=== PATIENT | male | born 1960 | race Caucasian/White ===

== ENCOUNTER 2018-02-02 14:35 | Emergency (ER) | payer BC, OTHER ==
--- NOTE | 2018-02-02 14:41 | PDOC ---
Rapid Medical Evaluation Time Seen by Provider: 02/02/18 14:38 Medical Evaluation: Allergies Allergy/AdvReac Type Severity Reaction Status Date / Time No Known Drug Allergies Allergy Unverified 02/02/18 14:38 02/02/18 14:38 57 year old male with history of NIDDM and HTN off meds who presented to PCP after 2 year absence and complained of 2 days of dizziness and blurred vision, worse at night. No headaches or chest pain. V/s on arrival unremarkable. Alert, oriented, no distress. RRR, S1/S2. Lungs CTAB. Abd soft, non-tender, non-distended. + Lateral nystagmus. Referring PCP is Dr. Vu. Plan: -EKG -Basic labs including CBC, CMP, UA, fingerstick -To Main ED for further evaluation
[2018-02-02 14:42] VITALS: BP 140/89; PULSE 88; TEMP 98.8; BMI 20.9
[2018-02-02 15:13] LABS: BASO % 0.6 % (0-2.0); EOS % 0.9 % (0-4.5); HEMATOCRIT 40.1 % (35.4-49); HEMOGLOBIN 14.1 GM/dL (11.7-16.9); LYMPH % 11.6 % (8-40); MCH 31.8 pg (25.7-33.7); MCHC 35.2 g/dl (32.0-35.9); MEAN CELL VOLUME 90.4 fl (80-96); MEAN PLT VOLUME 7.7 fl (7.5-11.1); MONO % 6.1 % (3.8-10.2); NEUT % 80.8 % (42.8-82.8); PLATELET COUNT 273 K/MM3 (134-434); RBC 4.44 M/mm3 (4.00-5.60); RDW 13.1 % (11.9-15.9); WHITE BLOOD COUNT 5.8 K/mm3 (4.0-10.0)
[2018-02-02 15:25] LABS: ALBUMIN 4.2 g/dl (3.4-5.0); CHLORIDE 102 mmol/L (98-107); SODIUM 137 mmol/L (136-145)
[2018-02-02 15:29] LABS: ALK PHOS 67 U/L (45-117); ANION GAP 7 MMOL/L (8-16); BILIRUBIN,TOTAL 0.5 mg/dL (0.2-1.0); BLOOD UREA NITROGEN 19 mg/dL (7-18); CO2 28 mmol/L (21-32); CREATININE 1.1 mg/dL (0.7-1.3); GLUCOSE,RANDOM 225 mg/dL (74-106); SGOT/AST 15 U/L (15-37); SGPT/ALT 18 U/L (12-78); TOT PROT 7.3 g/dl (6.4-8.2)
--- NOTE | 2018-02-02 15:35 | PDOC ---
History of Present Illness - General Chief Complaint: Lightheaded Stated Complaint: HAVING DIZZINESS BLUERRED VISSION ESPECISLY AT NIG Time Seen by Provider: 02/02/18 14:38 History Source: Patient Exam Limitations: No Limitations - History of Present Illness Initial Comments: 02/02/18 15:56 57 year old male with PMH diabetes sent to ED by Dr. Vu for dizzines x2 days. He states his dizziness is intermittent, agravated by laying flat, alleviated by sitting upright or standing. He denies headache, fever, chills, numbness, tingling, weakness, chest pain, shortness of breath, abdominal pain, current nausea, vomiting. PCP - Dr. Vu Allergies - NKDA Admits to social etoh use. Denies nicotine use. Denies illicit drug use. Past History - Past Medical History Allergies/Adverse Reactions: Allergies Allergy/AdvReac Type Severity Reaction Status Date / Time No Known Drug Allergies Allergy Unverified 02/02/18 14:38 Home Medications: Ambulatory Orders Aspirin [Amaury Chewable] 81 mg PO AC 02/02/18 Anemia: No Asthma: No Cancer: No Cardiac Disorders: No CVA: No COPD: No CHF: No DVT: No Dementia: No Diabetes: Yes (NIDDM) GI Disorders: No Disorders: No HTN: Yes Hypercholesterolemia: No Liver Disease: No Seizures: No Thyroid Disease: No - Surgical History Abdominal Surgery: No Appendectomy: No Cardiac Surgery: No Cholecystectomy: No Lung Surgery: No Neurologic Surgery: No Orthopedic Surgery: No - Suicide/Smoking/Psychosocial Hx Smoking History: Former smoker Have you smoked in the past 12 months: No Information on smoking cessation initiated: No Hx Alcohol Use: Yes (SOCIAL) Drug/Substance Use Hx: No Hx Substance Use Treatment: No Review of Systems - Review of Systems Able to Perform ROS?: Yes Comments:: 02/02/18 15:58 General: denies fever, chills, night sweats, generalized weakness. HEENT: denies sore throat, rhinorrhea, ear pain. Heart: denies chest pain, palpitations, syncope, lower extremity swelling, diaphoresis. Respiratory: denies shortness of breath, cough, sputum production, hematemesis. Abdomen: denies abdominal pain, nausea, vomiting, diarrhea, constipation, blood in stool. : denies dysuria, increased urinary frequency, hematuria, urinary incontinence , flank pain. Back: denies back pain, flank pain. Musculoskeletal: denies joint pain, muscle pain, joint swelling. Neurological: admits to dizziness. denies headache, numbness, tingling, weakness. Skin: denies rash, laceration, abrasion. *Physical Exam - Vital Signs Last Vital Signs Temp Pulse Resp BP Pulse Ox 98.8 F 88 18 140/89 100 02/02/18 14:40 02/02/18 14:40 02/02/18 14:40 02/02/18 14:40 02/02/18 14:40 - Physical Exam Comments: 02/02/18 15:58 Appearance: comfortable. HEENT: head is normocephalic, atraumatic. EOMI. PERRLA. Left-beating nystagmus with left-smart gaze. Neck: supple. Full ROM. Heart: regular rhythm. no murmurs, rubs or gallops. No pericardial friction rub. Lungs: clear to auscultation bilaterally. no crackles, rhonchi or wheezing. no stridor. Abdomen: soft, nontender. normal bowel sounds. no rebound, guarding, masses. Extremities: Peripheral pulses intact. No lower extremity edema. Neurological: Alert. Oriented x3. CN2-12 intact. 5/5 strength all extremities. Full sensation all extremities and bilateral face. Romberg negative. Finger to nose normal. Gait normal. Josie-Hallpike - No symptoms when standing. No symptoms when sitting straight up. No symptoms upon rotation of head to the left. Reproduction of symptoms and lateral nystagmus noted upon rotation of head to the right. Heart Score/ECG Review - ECG Impressions Comment:: 02/02/18 18:15 Rate 78, regular rhythm, normal axis, no ST changes. ED Treatment Course - LABORATORY CBC & Chemistry Diagram: 02/02/18 14:52 02/02/18 14:52 - ADDITIONAL ORDERS Additional order review: Laboratory Results 02/02/18 14:52 Sodium 137 Potassium 4.0 Chloride 102 Carbon Dioxide 28 Anion Gap 7 L BUN 19 H Creatinine 1.1 Creat Clearance w eGFR > 60 Random Glucose 225 H Calcium 9.0 Total Bilirubin 0.5 AST 15 ALT 18 Alkaline Phosphatase 67 Total Protein 7.3 Albumin 4.2 02/02/18 14:52 RBC 4.44 MCV 90.4 MCHC 35.2 RDW 13.1 MPV 7.7 Neutrophils % 80.8 Lymphocytes % 11.6 Monocytes % 6.1 Eosinophils % 0.9 Basophils % 0.6 Medical Decision Making - Medical Decision Making 02/02/18 15:55 57 year old male with PMH diabetes presents to ED c/o dizziness for two days associated with laying down, alleviated by sitting up right or standing. Initial Vital Signs Temp Pulse Resp BP Pulse Ox 98.8 F 88 18 140/89 100 02/02/18 14:40 02/02/18 14:40 02/02/18 14:40 02/02/18 14:40 02/02/18 14:40 Afebrile. No tachycardia. No hypotension. No hypoxia. Meclizine and Zofran ordered. 02/02/18 17:17 Pt reassessed, states no dizziness while sitting up, continued dizziness while laid down and head rotated to the right, but states that the dizziness is improved. 02/02/18 17:39 Pt reassessed, states his dizziness is continuing to improve. 02/02/18 18:[address] Vu, the pt's PCP, who would like a head CT ordered. She states if it is negative she would like the patient to be discharged with Meclizine prescription and Dr. Banda Neurology Referral. Pending head CT. 02/02/18 19:01 I discussed the patient with Dr. Sánchez, who will take over care for the patient. Pending head CT. *DC/Admit/Observation/Transfer Diagnosis at time of Disposition: Vertigo - Referrals Referrals: Kristina Vu MD [Primary Care Provider] - Graciela Banda MD [Staff Physician] - - Patient Instructions Printed Discharge Instructions: DI for Benign Paroxysmal Positional Vertigo Additional Instructions: You were seen today for dizziness. You were given Meclizine and Zofran. You likely have positional vertigo. Please follow up with your primary care doctor within 5 days. Call them tomorrow and make an appointment for this week. Bring the paperwork given to you today with you to your appointment. I have provided a referral for a neurologist, and provided their contact information in your discharge paperwork. Call them tomorrow and make an appointment for this week. Let them know you were seen in the Emergency Department. Bring the paperwork given to you today with you to your appointment. Please return to the Emergency Department for intractable dizziness, nausea, vomiting, chest pain, shortness of breath, weakness of arms or legs, numbness, tingling, loss of consciousness, seizures or any new, worsening or concerning symptoms. - Post Discharge Activity
[2018-02-02 15:36] LABS: URINE APPEARANCE CLEAR; URINE BILIRUBIN NEGATIVE (<2.0 mg/dL); URINE COLOR YELLOW; URINE GLUCOSE (UA) 3+ (NEGATIVE); URINE KETONE NEGATIVE (NEGATIVE); URINE LEUK ESTERASE NEGATIVE (NEGATIVE); URINE NITRITE NEGATIVE (NEGATIVE); URINE PROTEIN NEGATIVE (NEGATIVE); URINE UROBILINOGEN NEGATIVE mg/dL (0.2-1.0)
[2018-02-02] MEDS ORDERED: MECLIZINE HCL 25 MG TABLET (FP) PO ONE (16:03)
[2018-02-02] MEDS ORDERED: ONDANSETRON *ODT* 4 MG TABLET SL ONE (16:04)
[2018-02-02] MEDS ORDERED: MECLIZINE HCL 25 MG TABLET (FP) ONE (16:13)
--- NOTE | 2018-02-02 16:36 | EKG ---
Test Reason : Blood Pressure : / mmHG Vent. Rate : 078 BPM Atrial Rate : 078 BPM P-R Int : 130 ms QRS Dur : 090 ms QT Int : 378 ms P-R-T Axes : 074 047 036 degrees QTc Int : 430 ms NORMAL SINUS RHYTHM NORMAL ECG NO PREVIOUS ECGS AVAILABLE Confirmed by MAUREEN CHAPMAN MD ([id number]) on 02/02/2018 4:36:46 PM Referred By: Confirmed By:MAUREEN CHAPMAN MD
--- NOTE | 2018-02-02 17:11 | PDOC ---
Attending Attestation - Resident Resident Name: Honey Nagy - ED Attending Attestation I have performed the following: I have examined & evaluated the patient, The case was reviewed & discussed with the resident, I agree w/resident's findings & plan, Exceptions are as noted - HPI HPI: 02/02/18 17:11 57 yo male p/w positional dizziness - Physicial Exam PE: 02/02/18 19:46 head ncat eyes nystagmus in left lateral ,jean carlos eomi neck no bruits,no jvd lungs cta b/l cvs [id number] abd nontender ext no e/c/c neuro axox3,no ataxia,no motor weakness,no visual deficits,dtr+2 - Medical Decision Making 02/02/18 19:45 ct scan head normal ,no acute pathology labs reviewed referred to Dr Koenig ( neuro) 0 and given RX meclizine 02/02/18 19:49 IMP benign positional vertigo <Lila Reeves - Last Filed: 02/02/18 19:49> - HPI HPI: 02/02/18 20:01 Patient is a 57 year old male with a significant past medical history of Diabetes, who presents to ED with complaints of dizziness that began x2 days ago. Patient reports experiencing intermittent dizziness that he states is increased while laying flat and is slightly relieved when his is standing or sitting upright. Patient reports experiencing associated blurred vision, that he states prompted him to see his PCP who advised he come into the ED for further evaluation. Denies chest pain, Sob. Denies nausea, vomiting. Denies contact with sick individuals, out of state travelling. Denies fevers, chills.Denies head trauma. Denies dysuria, hematuria. Denies diarrhea, constipation. Denies any other symptoms. Allergies: None Social history: Former smoker, Social alcohol use. No illicit drugs. Surgical history: None PMD: Dr. Vu <Waldo Santoyo - Last Filed: 02/02/18 20:02>
--- NOTE | 2018-02-02 19:23 | PDOC ---
*Physical Exam - Vital Signs Last Vital Signs Temp Pulse Resp BP Pulse Ox 98.8 F 88 18 140/89 100 02/02/18 14:40 02/02/18 14:40 02/02/18 14:40 02/02/18 14:40 02/02/18 14:40 ED Treatment Course - LABORATORY CBC & Chemistry Diagram: 02/02/18 14:52 02/02/18 14:52 - ADDITIONAL ORDERS Additional order review: Laboratory Results 02/02/18 02/02/18 02/02/18 16:28 14:52 14:30 Sodium 137 Potassium 4.0 Chloride 102 Carbon Dioxide 28 Anion Gap 7 L BUN 19 H Creatinine 1.1 Creat Clearance w eGFR > 60 POC Glucometer [phone] Random Glucose 225 H Calcium 9.0 Total Bilirubin 0.5 AST 15 ALT 18 Alkaline Phosphatase 67 Total Protein 7.3 Albumin 4.2 Urine Color Yellow Urine Appearance Clear Urine pH 6.0 Ur Specific [place] 1.018 Urine Protein Negative Urine Glucose (UA) 3+ H Urine Ketones Negative Urine Blood Negative Urine Nitrite Negative Urine Bilirubin Negative Urine Urobilinogen Negative Ur Leukocyte Esterase Negative 02/02/18 02/02/18 16:28 14:52 RBC 4.44 MCV 90.4 MCHC 35.2 RDW 13.1 MPV 7.7 Neutrophils % 80.8 Lymphocytes % 11.6 Monocytes % 6.1 Eosinophils % 0.9 Basophils % 0.6 POC Glucometer [phone] - Medications Given in the ED: ED Medications Discontinued Medications Generic Name Dose Route Start Last Admin Trade Name Freq PRN Reason Stop Dose Admin Meclizine HCl 50 mg 02/02/18 16:03 02/02/18 16:12 Antivert - PO 02/02/18 16:04 50 mg ONCE ONE Administration Ondansetron HCl 4 mg 02/02/18 16:04 02/02/18 16:12 Zofran Odt - SL 02/02/18 16:05 4 mg ONCE ONE Administration Medical Decision Making - Medical Decision Making Likely BPPV. Received meclizine and zofran. Awaiting head CT results. Imaging requested by Dr. Castillo. Follow up with outpatient neurology. Discussed normal imaging results with pt. Answered all questions. Provided return precautions. Pt expressed verbal understanding and agreement with plan to discharge home with outpatient neurology follow up. Prescription for meclizine sent to pharmacy of record. Cautioned pt to medication's sedating effect. *DC/Admit/Observation/Transfer Diagnosis at time of Disposition: Vertigo - Discharge Dispostion Disposition: HOME Condition at time of disposition: Fair Decision to Admit order: No - Prescriptions Prescriptions: Meclizine HCl [Antivert -] 25 mg PO QID PRN #28 tablet PRN Reason: Vertigo Meclizine HCl [Antivert -] 25 mg PO QID PRN #28 tablet PRN Reason: Vertigo - Referrals Referrals: Kristina Vu MD [Primary Care Provider] - Graciela Banda MD [Staff Physician] - - Patient Instructions Printed Discharge Instructions: DI for Benign Paroxysmal Positional Vertigo Additional Instructions: You were seen today for dizziness. You likely have positional vertigo. Your head CT scan was normal. I have attached a copy of the report to your packet. Please take it to your follow up doctor's visit. I have sent a prescription for Meclizine [facility] [address] in [place], [place]. Their phone number is [phone]. Please follow up with your primary care doctor within 5 days. Call them tomorrow and make an appointment for this week. Bring the paperwork given to you today with you to your appointment. I have provided a referral for a neurologist, and provided their contact information in your discharge paperwork. Call them tomorrow and make an appointment for this week. Let them know you were seen in the Emergency Department. Bring the paperwork given to you today with you to your appointment. Please return to the Emergency Department for intractable dizziness, nausea, vomiting, chest pain, shortness of breath, weakness of arms or legs, numbness, tingling, loss of consciousness, seizures or any new, worsening or concerning symptoms. Print Language: ENGLISH - Post Discharge Activity
== END 2018-02-02 20:05 | disposition home or self-care (01) ==
LOC: JER 14:35
DX: H81.10 Benign paroxysmal vertigo, unspecified ear (principal); I10 Essential (primary) hypertension; E11.9 Type 2 diabetes mellitus without complications; Z79.82 Long term (current) use of aspirin
CPT/HCPCS: 36415; 70450-TC; 80053; 81003; 82962; 85025; 93005; 93010; 99283-25; Q0162